=== PATIENT | female | born 1990 | race Two or more races ===

== ENCOUNTER → 2021-01-01 | Outpatient (CLI) | payer BC ==
[2021-01-03 06:10] LABS: HERPES ZOSTER, VARICELLA IgG >4000 index (Immune >165); MUMPS VIRUS IgG ANTIBODY <9.0 AU/mL (Immune >10.9)
== END ==
LOC: M WUC 14:29
PROVIDERS: ATTEND Student in an Organized Health Care Education/Training Program
DX: Z01.84 Encounter for antibody response examination (principal)

== ENCOUNTER → 2021-03-17 | Outpatient (CLI) | payer BC | LOC: M LAB 16:26 | PROVIDERS: ATTEND Advanced Practice Midwife | DX: Z13.71 Encounter for nonprocreative screening for genetic disease carrier status (principal) ==

== ENCOUNTER → 2021-03-17 | Outpatient (CLI) | payer BC | LOC: M PLALAB 14:50 | PROVIDERS: ATTEND Advanced Practice Midwife | DX: Z12.4 Encounter for screening for malignant neoplasm of cervix (principal); Z13.71 Encounter for nonprocreative screening for genetic disease carrier status ==